=== PATIENT | male | born 1955 | race Caucasian/White ===

== ENCOUNTER 2023-11-03 05:14 | Observation (INO) ==
--- NOTE | 2023-06-21 10:46 | PAT Medication Instructions ---
Medication Instructions Date of Service June 21, 2023 Home Medications Medication Instructions Recorded oxycodone 5 mg tablet 5 - 10 mg (1 - 2 x 5 mg) PO 06/18/22 .Q4h-6h PRN pain #30 tabs Medical Marijuana 1 dose PO UD PRN oxycodone 5 mg tablet 5 - 10 mg (1 - 2 x 5 mg) PO .Q4h-6h PRN celecoxib 200 mg capsule (Celebrex) 200 mg PO QAM tadalafil 5 mg tablet (Cialis) 5 mg PO QAM ASK your surgeon for instructions celecoxib 200 mg capsule (Celebrex) 200 mg PO QAM STOP taking 24 hours before surgery Medical Marijuana 1 dose PO UD PRN tadalafil 5 mg tablet (Cialis) 5 mg PO QAM Take morning of surgery With a small sip of water, OTHERWISE NOTHING TO EAT OR DRINK AFTER MIDNIGHT: oxycodone 5 mg tablet 5 - 10 mg (1 - 2 x 5 mg) PO .Q4h-6h PRN(if needed) Take evening before surgery oxycodone 5 mg tablet 5 - 10 mg (1 - 2 x 5 mg) PO .Q4h-6h PRN(if needed) Other Notes If you have any questions please call us at [phone] or [phone] or [phone] or [phone]
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
--- NOTE | 2023-10-14 15:55 | PAT Medication Instructions ---
Medication Instructions Date of Service October 14, 2023 Home Medications Medication Instructions Recorded oxycodone 5 mg tablet 5 - 10 mg (1 - 2 x 5 mg) PO 06/18/22 .Q4h-6h PRN pain #30 tabs Medical Marijuana 1 dose PO UD PRN Pain oxycodone 5 mg tablet 5 - 10 mg (1 - 2 x 5 mg) PO .Q4h-6h PRN pain celecoxib 200 mg capsule (Celebrex) 200 mg PO QAM tadalafil 5 mg tablet (Cialis) 5 mg PO QAM fluticasone propionate 50 mcg/actuation nasal spray,suspension 1 spray intranasal QAM ASK your surgeon for instructions celecoxib 200 mg capsule (Celebrex) 200 mg PO QAM STOP taking 24 hours before surgery Medical Marijuana 1 dose PO UD PRN Pain tadalafil 5 mg tablet (Cialis) 5 mg PO QAM Take morning of surgery With a small sip of water, OTHERWISE NOTHING TO EAT OR DRINK AFTER MIDNIGHT: oxycodone 5 mg tablet 5 - 10 mg (1 - 2 x 5 mg) PO .Q4h-6h PRN pain (if needed) fluticasone propionate 50 mcg/actuation nasal spray,suspension 1 spray intranasal QAM Take evening before surgery oxycodone 5 mg tablet 5 - 10 mg (1 - 2 x 5 mg) PO .Q4h-6h PRN pain (if needed) Other Notes If you have any questions please call us at [phone] or [phone] or [phone] or [phone]
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
[2023-11-03] MEDS: LR 500ML BOLUS, THEN 15ML/HR IV SCH (05:58)
[2023-11-03] MEDS: CeleBREX 200 MG CAP PO SCH (05:59)
[2023-11-03] MEDS: METOCLOPRAMIDE HCL 10 MG TABLET PO SCH (05:59)
[2023-11-03] MEDS: dexAMETHasone**PF** 10 MG/ML VIAL IV SCH (05:59)
[2023-11-03] MEDS: ACETAMINOPHEN 500 MG TAB PO SCH ×2 (05:59→13:31)
[2023-11-03] MEDS: FAMOTIDINE 20 MG TAB PO SCH (05:59)
[2023-11-03] MEDS: GABAPENTIN 300 MG CAP PO SCH (06:00)
[2023-11-03] MEDS: LR 60ML/HR IV SCH (06:00)
[2023-11-03] MEDS ORDERED: BUPIVACAINE 0.25% PF 30 ML VIAL ONE (06:20)
[2023-11-03] MEDS ORDERED: BUPIVACAINE 0.5 % 5 MG/1 ML PF 10ML VIAL ONE (06:20)
[2023-11-03] MEDS ORDERED: PHENYLEPHRINE 100MCG/ML 10ML SYR IV ONE (06:41)
[2023-11-03] MEDS ORDERED: ONDANSETRON INJ 2 MG/ML 2 ML VIAL ONE (06:41)
[2023-11-03] MEDS ORDERED: MIDAZOLAM HCL 1 MG/ML 2ML VIAL ONE (06:41)
[2023-11-03] MEDS ORDERED: PROPOFOL IV EMULSION 10 MG/ML 20 ML VIAL IV ONE (06:41)
--- NOTE | 2023-11-03 06:49 | History & Physical Bridge Note ---
Date of Service November 03, 2023 History & Physical Bridge Note I have examined the patient, reviewed the History & Physical and in the interval since the performance of the History & Physical I have noted the following changes of clinical significance: no changes noted
[2023-11-03] MEDS: TRANEXAMIC ACID 1,000 MG **IV Pre-op IV SCH (06:53)
[2023-11-03] MEDS ORDERED: ONDANSETRON INJ 2 MG/ML 2 ML VIAL IV PRN ×2 (06:58→10:34)
[2023-11-03] MEDS ORDERED: fentaNYL citrate PF 100 MCG/2 ML VIAL IV PRN (06:58)
[2023-11-03] MEDS ORDERED: ATROPINE SULFATE 0.1 MG/ML 10ML SYR IV PRN (06:58)
[2023-11-03] MEDS ORDERED: ePHEDrine sulfate 50 MG/ML AMP IV PRN (06:58)
[2023-11-03] MEDS: ceFAZolin 2000MG 2,000 MG/15 ML SYR IV SCH ×2 (07:03→16:19)
[2023-11-03] MEDS: ROPIV 0.5% 246mg, Ketorolac 30mg, EPINEPHrine 0.5mg in NSS INFIL SCH (08:12)
--- NOTE | 2023-11-03 08:36 | Operative Report ---
Post Operative Report Pre & Post Diagnosis Operation Date: 11/03/23 07:00 Pre-Op Diagnosis: Left Knee Osteoarthritis Post-Op Diagnosis: Left Knee Osteoarthritis I identified the patient and participated in the time-out.: Yes Procedure Operation Date: 11/03/23 07:00 Actual Procedures p Left Total Knee Arthroplasty(Left), ana and Acticoat superficial wound VAC application- Joey Pelaez MD Surgeon Joey Pelaez MD Exterior Designer Elvin MARCUM Estimated Blood Loss 5 Findings Consistent with Post-Op Diagnosis Specimens Bone cuts Drains 2 Hemovac Anesthesia Type MAC Spinal Regional Complications none Disposition Disposition: Recovery Room Indications 68-year-old male with chronic left knee pain conservative management. Radiographically medial compartment and patellofemoral osteoarthritis with a varus knee. Description of Procedure The patient was taken to the operating room and anesthetized under spinal MAC regional block. Patient was placed supine on the the operating table. A pneumatic tourniquet was placed about the left upper thigh. The knee exam demonstrated 0 to 130 degrees range of motion no pseudolaxity no instability.. The involved leg was elevated exsanguinated with Esmarch bandage and the pneumatic tourniquet was raised to 300 millimeters mercury. A longitudinal incision was made across the anterior knee. Skin flaps were elevated. An incision was made into the medial retinaculum and extended up into the mid third of the quadriceps tendon and extended down to the tibial tubercle. Intra-art icular findings demonstrated tricompartmental osteoarthritis with grade 4 medial compartment grade 3 patellofemoral on the patella and some grade 4 on the trochlear groove. There is a complex posterior horn medial meniscus tear. The knee was exposed by excising cruciate ligaments and menisci. The infrapatellar fat pad was resected. The fat pad over the anterior femur at the upper aspect of the articular surface was resected for placement of the component in that area. A subperiosteal peel lateral release was performed around the patella. The [employer] journey 2.0 total knee arthroplasty system was utilized for the procedure. The custom femoral cutting guide was pinned in position. The distal femoral cut was made. The size 8, 5 in 1 cutting block was placed. The anterior posterior and chamfer cuts were made. The knee was extended and a free hand cut technique was performed to the patella. The patella width was measured and the width was reproduced using a 38 symmetrical patella component. The excess lateral facet was beveled off to prevent any impingement. 3 drill holes are made for the patella component pegs. The tibia was then subluxed. The custom tibial cutting block was pinned in position and the proximal tibial cut was made with the oscillating saw. Flexion and extension gaps were balanced. No releases were required. The size 8 tibial trial was externally rotated in line with the tibial tubercle and pinned in position. The punch for the stem was used. The femoral trial was inserted and centered the notch cutting devices were used and the collet was placed. Tibial trials were used for the insert. The size 11 trial gave balanced ligaments through full range of motion. Patella tracking was assessed with range of motion. The patella tracked ce ntrally. A few superficial fibers of the IT band attachment to the lateral retinaculum were released to help with patellar tracking. The trials were removed. The Orthomix anesthetic cocktail was injected per protocol. The cut bone surfaces and soft tissue were copiously irrigated with pulsatile lavage saline solution. The final components were cemented with Refobacin cement. The final components were spent averaging 2.0 size 8 left femoral component, 8 left tibial component, 11 mm left posterior stabilized tibial polyethylene insert and a 38 mm symmetrical polyethylene patella. Xperience irrigation was placed over metal tray prior to polyethyle insertion. After the cement cured, the knee was then copiously irrigated with pulsatile lavage Xperience solution. 2 drains were brought out laterally connected to Hemovac. The quadriceps tendon and medial retinaculum were closed with interrupted [id number] #1 Vicryl sutures. The knee was taken through full range of motion and repair was secure. Knee range of motion was normal full range of motion. the subcutaneous tissues were closed with 2-0 Vicryl sutures. The skin was closed with vickey. A ana Natecal superficial wound VAC was applied. The tourniquet was let down and the patient had good capillary refill to the extremity. The patient tolerated the procedure well. My physician client services assistant Elvin MARCUM participated as gynecological assistant and was integral part in all aspects of the procedure including prepping, draping, leg positioning, soft tissue retraction, instrument management and assisted in the closure , wound VAC application and will participate in postoperative care the patient. I attest to the content of the Intraoperative Record and any orders documented therein. Any exceptions are noted below.
--- NOTE | 2023-11-03 09:53 | XRay Report ---
XR knee LT 1 or 2V routine HISTORY: 68 years-old Male Surgical Post Op left knee arthroplasty COMPARISON: None TECHNIQUE: 2 views of the left knee FINDINGS: Total joint arthroplasty with patellar resurfacing. Anterior midline skin vickey with surgical drain age catheter, expected postoperative soft tissue swelling with deep tissue air. IMPRESSION: Total joint arthroplasty with expected postoperative changes. ACT 112: Negative or not required by law. The above report was generated using voice recognition software. It may contain grammatical, syntax o r spelling errors. Electronically signed by: Donny Dinh M.D. 11/03/2023 9:52 AM
--- NOTE | 2023-11-03 10:18 | Anesthesiology Progress Note ---
Date of Service November 03, 2023 Anesthesia Post Procedure Vital Signs Vital Signs: Temp Pulse Resp BP Pulse Ox O2 Del Method O2 Flow Rate 11/03/23 09:55 54 L 20 143/89 H 98 Room Air 11/03/23 09:40 52 L 18 137/70 98 Room Air 11/03/23 09:30 36.5 C 56 L 12 135/77 97 Room Air 11/03/23 09:20 58 L 17 137/74 98 Room Air 11/03/23 09:10 53 L 14 123/72 100 Oxymask 9 11/03/23 09:04 69 13 120/71 99 Oxymask 9 11/03/23 05:46 36.9 C 61 20 165/85 H 97 Room Air Transfer of Care Handoff Completed per policy Notes Mental Status: alert / awake / arousable and participated in evaluation Patient Amnestic to Procedure: Yes Nausea / Vomiting: adequately controlled Pain: adequately controlled Airway Patency, RR, SpO2: stable & adequate BP & HR: stable & adequate Hydration State: stable & adequate Neuraxial Anesthesia: was administered and sensory block is resolving Anesthetic Complications: no major complications apparent and Pt Satisfied with anesthetic care
[2023-11-03] MEDS ORDERED: MAGNESIUM HYDROXIDE SUSP 30 ML UDC PO PRN (10:34)
[2023-11-03] MEDS ORDERED: diphenhydrAMINE 50 MG/ML VIAL IV PRN (10:34)
[2023-11-03] MEDS ORDERED: bisacodyL 10 MG SUPP PR PRN (10:34)
[2023-11-03] MEDS ORDERED: NALOXONE HCL 0.4 MG/1 ML VIAL/CARP IV PRN (10:34)
[2023-11-03] MEDS: ORTHO JOINT ANESTHETIC ONE (10:35)
[2023-11-03] MEDS: TRANEXAMIC ACID 1,000 MG **IV Intra-op IV SCH (10:36)
[2023-11-03] MEDS: SODIUM CHLORIDE 0.9% 1,000 ML IV SCH (12:00)
[2023-11-03] MEDS: oxyCODONE HCL IR 5 MG TAB (IMMEDIATE RELEASE) PO PRN (12:40)
[2023-11-03] MEDS: FLUTICASONE PROPIONATE NA SPR 16 GM BTL SCH (13:28)
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
[2023-11-03] MEDS: SENNA 8.6 MG TAB PO SCH (21:03)
[2023-11-03] MEDS: DOCUSATE SODIUM 100 MG CAP PO SCH (21:03)
[2023-11-03] MEDS: ASPIRIN 81 MG ECTAB PO SCH (21:03)
[2023-11-03] MEDS: HYDROmorphone INJ 0.5 MG/0.5 ML SYR IV PRN (23:19)
--- NOTE | 2023-11-04 07:05 | Orthopedic Progress Note ---
Date of Service November 04, 2023 Assessment & Plan (1) Osteoarthritis of left knee: Plan: Postop day 1 status post left total knee arthroplasty PT/OT protocols. Weightbearing as tolerated DVT prophylaxis-aspirin p.o. twice daily, SCDs, ANGELI rob. Pain management as written Labs pending DC planning-patient is planning for outpatient PT upon discharge. Admission and Anticipated Discharge Date Admission Date: November 03, 2023 Subjective Postop day 1 Patient sleeping upon arrival. Easily awoken. No complaints this morning other than patient had difficulty sleeping due to other things going on with patients in the hospital and noise. Denies shortness of breath, chest pain, lightheadedness. Patient is hoping to go home today. Pain is controlled Physical Exam Physical Exam: Dressings are clean, dry, and intact. Calves are soft nontender. Neurovascular intact. Toes are mobile. Patient has good dorsiflexion and plantarflexion of his left foot. Hemovac drainage was 100 cc from the previous shift Results & Data Vital Signs (Past 12 Hours) Vital Signs Temp Pulse Pulse Resp BP Pulse Ox O2 Del Method 11/04/23 03:58 36.6 C 81 95 H 18 133/73 81 L Room Air 11/03/23 20:26 36.6 C 55 L 18 171/82 H 96 Room Air Laboratory Results Impressions Knee X-Ray 11/03/23 09:06 XR knee LT 1 or 2V routine HISTORY: 68 years-old Male Surgical Post Op left knee arthroplasty COMPARISON: None TECHNIQUE: 2 views of the left knee FINDINGS: Total joint arthroplasty with patellar resurfacing. Anterior midline skin vickey with surgical drainage catheter, expected postoperative soft tissue swelling with deep tissue air. IMPRESSION: Total joint arthroplasty with expected postoperative changes. ACT 112: Negative or not required by law. The above report was generated using voice recognition software. It may contain grammatical, syntax or spelling errors. Electronically signed by: Donny Dinh M.D. 11/03/2023 9:52 AM
[2023-11-04] MEDS: MULTIVITAMIN TAB PO SCH (08:11)
[2023-11-04] MEDS: CeleBREX 200 MG CAP PO SCH (08:11)
[2023-11-04 08:57] LABS: Hematocrit (blood only) 33.8 % (42.0-52.0); Hemoglobin 11.3 g/dl (14.0-18.0); Mean Corpuscular Hemoglobin 30.2 pg (25.0-34.0); Mean Corpuscular Hgb Conc 33.4 g/dL (32.0-36.0); Mean Corpuscular Volume 90.4 fL (80.0-100.0); Mean Platelet Volume 10.2 fL (9.4-12.4); Platelet Count 180 K/uL (130-400); RDW Coefficient of Variation 13.5 % (11.5-14.5); RDW Standard Deviation 44.4 fL (36.4-46.3); Red Blood Count 3.74 M/uL (4.70-6.10); White Blood Count 9.26 K/ul (4.8-10.8)
[2023-11-04 09:13] LABS: BUN Creatinine Ratio 27.6 (10-20); Calcium 8.6 mg/dl (8.6-10.3); Creatinine Clr Calc Pharmacy 104.1 ml/min; Est GFR (African American) 102.8 ml/min; Est GFR (Non-African American) 88.7 ml/min; Potassium 4.1 mmol/L (3.5-5.1)
--- NOTE | 2023-11-05 13:01 | Discharge Summary ---
Date of Service November 05, 2023 Admission HPI Per Admitting Provider 68-year-old male with progressive pain left knee failed conservative management. Patient has advanced osteoarthritis left knee medial compartment. Patient denies headaches, sweats, fevers, chills, double vision, blurred vision, cough, sore throat, dysphagia, chest pain, sob, wheezing, n/v/d/c, numbness, tingling, fatigue, urinary symptoms, mood disorders. ROS positive for asthma, arthritic issues in the spine ,obesity. Admission Exam Per Admitting Provider Physical Exam Constitutional: WD/WN, vitals as above Respiratory: normal respiratory effort; no respiratory distress Cardiovascular: Rate/Rhythm: regular rate and regular rhythm Musculoskeletal: Left knee with moderate knee effusion medial joint line tenderness mild patellofemoral malalignment positive Ioana exam varus knee alignment. Good range of motion. Distal neurological exam intact circulation sensorimotor exam intact Skin: no rashes, warm and dry Neurologic: normal touch/pain/proprioception Psychiatric: A+Ox3, euthymic affect Principal Diagnosis Left Knee Osteoarthritis Discharge Data Allergies Allergy/AdvReac Type Severity Reaction Status Date / Time No Known Allergies Allergy Verified 11/03/23 05:44 Consultations 11/03/23 05:00 Consult Hospitalist Routine Procedures Performed Operation Date: 11/03/23 07:00 Actual Procedures p Left Total Knee Arthroplasty(Left) - Joey Pelaez MD Ordered Studies 11/03/23 05:00 US - OR guided needle placemen Routine Hospital Course (1) Osteoarthritis of left knee: Patient: SIERRA FELDER Admit Date: 11/03/23 MR#: [id number] Att Phy: Joey Pelaez M.D. Acct ID: [id number] Psychiatric Phy: Lashell Sanchez PA-C Date: 1955 Fam Phy: Age: 68 Location: 3E Sex: M Room/Bed: [facility]– [place] cc: ~ *NOTICE TO RECEIVING CONSTITUTION PARTY/AGENCY This information is strictly Confidential and protected under [place] law. [place] law prohibits you from making any further disclosure of this information unless further disclosure is expressly permitted by the written consent of the person to whom it pertains or is authorized by law. A general authorization for the release of medical or other information is not sufficient for this purpose. Hospital accepts no responsibility if the information is made available to any other person, INCLUDING THE PATIENT. Date of Service November 04, 2023 Assessment & Plan (1) Osteoarthritis of left knee: Plan: Postop day 1 status post left total knee arthroplasty PT/OT protocols. Weightbearing as tolerated DVT prophylaxis-aspirin p.o. twice daily, SCDs, ANGELI rob. Pain management as written Labs pending DC planning-patient is planning for outpatient PT upon discharge. Admission and Anticipated Discharge Date Admission Date: November 03, 2023 Subjective Postop day 1 Patient sleeping upon arrival. Easily awoken. No complaints this morning other than patient had difficulty sleeping due to other things going on with patients in the hospital and noise. Denies shortness of breath, chest pain, lightheadedness. Patient is hoping to go home today. Pain is controlled Physical Exam Physical Exam: Dressings are clean, dry, and intact. Calves are soft nontender. Neurovascular intact. Toes are mobile. Patient has good dorsiflexion and plantarflexion of his left foot. Hemovac drainage was 100 cc from the previous shift Results & Data Vital Signs (Past 12 Hours) Vital Signs Temp Pulse Pulse Resp BP Pulse Ox O2 Del Method 11/04/23 03:58 36.6 C 81 95 H 18 133/73 81 L Room Air 11/03/23 20:26 36.6 C 55 L 18 171/82 H 96 Room Air Laboratory Results Impressions Knee X-Ray 11/03/23 09:06 XR knee LT 1 or 2V routine HISTORY: 68 years-old Male Surgical Post Op left knee arthroplasty COMPARISON: None TECHNIQUE: 2 views of the left knee FINDINGS: Total joint arthroplasty with patellar resurfacing. Anterior midline skin vickey with surgical drainage catheter, expected postoperative soft tissue swelling with deep tissue air. IMPRESSION: Total joint arthroplasty with expected postoperative changes. ACT 112: Negative or not required by law. The above report was generated using voice recognition software. It may contain grammatical, syntax or spelling errors. Electronically signed by: Donny Dinh M.D. 11/03/2023 9:52 AM Signed By: <Electronically signed by Joey Pelaez MD> 11/04/23 0745 <Electronically signed by Elvin Vanegas PA-C> 11/04/23 0704 Created: 11/04/23 0702 Total Time Total Time Spent Total Time Spent (In Minutes): 5 Discharge Plan Discharge Items Patient Disposition: Home - Self-Care Reason For Visit: Left Knee Osteoarthritis Discharge Diagnosis: Left knee osteoarthritis Activity: Per Instructions section Weightbearing: Full weightbearing Non-emergency contact: Surgeon Call non-emergency contact if: you have any medication questions, your pain is not controlled, your temperature is above 101.5, your wound has increased redness and your wound has increased drainage Follow-up/Referrals: Joey Pelaez MD [Surgeon] - ( follow-up with Dr. Pelaez in 2 weeks from the day of your surgery for your first postoperative visit.) Lashell Sanchez PA-C [Primary Care Provider] - Diet: Regular Addtl Attending Provider Instructions: ACTIVITY RECOMMENDATIONS: SELF CARE INSTRUCTIONS AFTER TOTAL KNEE REPLACEMENT A. You may need to continue a physical therapy program after discharge from the hospital. There are several options available to you. Your doctor will assist you in selecting the best one for you. 1. An out-patient facility 2 to 3 times a week for therapy or home therapy. 2. Continue working on all exercises taught to you in the hospital. Your goals should be to increase bending of your knee to 90 degrees and beyond and to fully straighten your knee. B. You may progress at your own pace from walking with a walker or crutches to a cane; then to no assistive devices. C. Make walking a part of your daily routine. Be up as much as comfortable with rest periods throughout the day. Rest with leg elevation is very important. Use the ice wrap frequently for the first 3-4 weeks. D. There are no restrictions on activities. You may ride in a car, shop, participate in stunner animal and all social activities. E. Wear the long elastic stockings (ANGELI hose) 20 hours a day for 2 weeks after surgery. They can be removed several times a day for laundering and for a bath. F. You may shower, no tub baths until cleared by your doctor. SPECIAL CARE INSTRUCTIONS: VERY IMPORTANT TO READ AND REVIEW A. There are a few signs you need to watch for after you are home. Call [facility] if you notice any of the followin. Increased severe knee pain. Some pain is expected especially when you exercise. 2. Increased swelling in your leg or knee; pain or swelling of the calf muscle in either lower leg. 3. Any fluid drainage from the incision. 4. Shortness of breath or chest pain. B. Please call [facility] at if you have any concerns or questions about your operation or recovery. The doctor or his nurse will return your call promptly. C. You must take antibiotics before dental work, bladder, bowel or other surgery. Your doctor will provide you with a permanent care to carry describing this precaution. IMPORTANT: * REMEMBER TO TAKE ASPIRIN, 81 MG, TWICE DAILY FOR 4 WEEKS UNLESS OTHERWISE DIRECTED. THIS IS YOUR BLOOD THINNER.. * CALL IF INCREASED PAIN, REDNESS, DRAINAGE OR FEVER GREATER THAT 101. * WEAR ANGELI HOSE 20 HOURS PER DAY FOR 2 WEEKS. * LYDIA Dressing - This is a large suction dressing covering your incision. This will help pull any excess drainage from the wound and allow your incision to heal properly. You may shower with this if you can keep the unit outside of the shower. If any bleeding or leakage is noted please call your doctor's office. This will remain on your incision for 7 days and then should be removed. This can be done yourself or by the home nursing staff if applicable. The entire unit is disposable once removed. Once removed, keep incision clean and dry. If redness or drainage is noted, please call your surgeon. . FOLLOW UP VISIT: If appointment is not already scheduled: Please call [facility] to make a follow-up appointment for 2 weeks after your surgery at . Stand-Alone Forms: [facility] [employer], Smoking Cessation Medications and DC Order Prescriptions: New acetaminophen [Tylenol Extra Strength] 500 mg Tablet 1,000 mg PO Q8 14 Days Qty: 84 0RF aspirin 81 mg Tablet,Delayed Release (Dr/Ec) 81 mg PO BID 30 Days Qty: 60 0RF oxycodone 5 mg tablet 5 mg PO Q4H MDD 6 PRN (Reason: pain) Qty: 30 0RF polyethylene glycol 3350 [Miralax] 17 gram powder in packet 17 g PO DAILY PRN (Reason: constipation) Qty: 5 0RF Continued celecoxib [Celebrex] 200 mg Capsule 200 mg PO QAM tadalafil [Cialis] 5 mg Tablet 5 mg PO QAM fluticasone propionate 50 mcg/actuation [place],Suspension 1 spray INTRANASAL QAM Rx Instructions: administer into each nostril Held Medical Marijuana 1 dose PO UD PRN (Reason: Pain) Hold Instructions: Hold use until no longer taking narcotic medication Patient Comments: TAKES PO OR VAPING FORM Discontinued oxycodone 5 mg Tablet 5 - 10 mg PO .Q4h-6h MDD 6 PRN (Reason: pain) Qty: 30 0RF Rx Instructions: Ongoing therapy, Dr. Pelaez supervising Discharge Orders: Discharge Order (Routine); Ordered 11/04/23 Ordered By: Elvin Vanegas Admission Data Admit Date/Time: 11/03/23 09:06 Attending Provider: Joey Pelaez Admit Provider: Joey Pelaez Primary Care Provider: Lashell Sanchez Other Providers: James Burnette Other Interventions: Discharge Summary Assessment (RN) Last Done: 11/04/23 09:35
== END 2023-11-04 11:07 | disposition home or self-care (01) ==
LOC: ASU 05:14 → 3E 05:14